=== PATIENT | male | born 1950 | race American Indian/Alaskan Native ===

== ENCOUNTER 2020-02-27 06:14 | Observation (INO) | payer MEDICARE ==
[2020-02-27] MEDS ORDERED: CLOPIDOGREL 75 MG TAB PO SCH (06:56)
[2020-02-27 07:39] LABS: INR 1.02 (0.87-1.13)
[2020-02-27 07:41] LABS: BUN/Creatinine Ratio 18; Blood Urea Nitrogen 22 mg/dL (9-20); Calcium 9.4 mg/dL (8.4-10.2); Hemolysis Index 3
[2020-02-27] MEDS: SODIUM CHLORIDE 0.9% 500 ML 500 ML IV SCH ×3 (07:43→08:55)
[2020-02-27 07:44] LABS: Eosinophils # (Auto) 0.2 K/mm3 (0.0-0.4); Eosinophils % (Auto) 2.4 % (0.0-4.3); Hematocrit 42.3 % (35.5-45.6); Hemoglobin 14.1 gm/dl (11.8-15.2); Lymphocytes # (Auto) 1.9 K/mm3 (1.2-5.4); Lymphocytes % (Auto) 28.7 % (13.4-35.0); Mean Corpuscular HGB Conc 33 % (32-34); Mean Corpuscular Volume 101 fl (84-94); Monocytes # (Auto) 0.9 K/mm3 (0.0-0.8); Monocytes % (Auto) 13.7 % (0.0-7.3); Platelet Count 157 K/mm3 (140-440); Red Blood Count 4.19 M/mm3 (3.65-5.03); Red Cell Distribution Width 14.2 % (13.2-15.2)
[2020-02-27] MEDS ORDERED: ASPIRIN EC 325 MG TAB PO SCH (08:00)
[2020-02-27] MEDS: MIDAZOLAM 2 MG/2 ML INJ ONE ×3 (08:43→08:58)
[2020-02-27] MEDS: LIDOCAINE (2%) 20 MG/1 ML VIAL 20 ML MDV INFILTRATI ONE ×2 (08:44→08:56)
[2020-02-27] MEDS: fentaNYL 100 MCG/2 ML INJ ONE ×4 (08:44→09:28)
[2020-02-27] MEDS: HEPARIN 10,000 UNITS/10 ML VIAL ONE ×4 (08:44→09:31)
[2020-02-27] MEDS: VERAPAMIL 5 MG/2 ML INJ ONE ×2 (08:45→08:58)
[2020-02-27] MEDS: HEPARIN/NS 5000 UNIT/500ML 1,000 ML IR ONE ×2 (08:46→08:55)
[2020-02-27] MEDS: NITROGLYCERIN SYRINGE 3 ML ONE ×2 (08:46→08:55)
[2020-02-27] MEDS ORDERED: NITROGLYCERIN SYRINGE 3 ML ONE ×2 (09:50→10:24)
[2020-02-27] MEDS ORDERED: HEPARIN/NS 5000 UNIT/500ML 500 ML IR ONE (09:57)
[2020-02-27] MEDS ORDERED: HYDROmorphone 1 MG/1 ML INJ ONE ×2 (10:06→10:12)
[2020-02-27] MEDS ORDERED: MIDAZOLAM 2 MG/2 ML INJ ONE (10:12)
[2020-02-27] MEDS ORDERED: NITROGLYCERIN DRIP 50 MG/250 ML BOTTLE ONE (10:22)
[2020-02-27] MEDS ORDERED: TIROFIBAN/NS 12,500 MCG/250 ML BAG IV ONE (10:38)
[2020-02-27] MEDS: ALUM-MAG HYDROXIDE-SIMETHICONE 200-200-20MG/5ML ORAL LIQD 30 ML ONE ×2 (11:00→11:11)
[2020-02-27] MEDS ORDERED: TIROFIBAN/NS 12,500 MCG/250 ML BAG IV SCH (11:00)
[2020-02-27] MEDS: CLOPIDOGREL 75 MG TAB ONE ×2 (11:00→11:11)
[2020-02-27] MEDS ORDERED: ACETAMINOPHEN 325 MG TAB PO PRN (11:16)
[2020-02-27] MEDS ORDERED: HYDROcodone/ACETAMINOPHEN 5-325 MG TAB PO PRN (11:16)
[2020-02-27] MEDS ORDERED: SENNOSIDES 8.6 MG TAB PO PRN (11:16)
[2020-02-27] MEDS ORDERED: ONDANSETRON 4 MG/2 ML INJ IV PRN (11:16)
[2020-02-27] MEDS ORDERED: ZOLPIDEM 5 MG TAB PO PRN (11:16)
[2020-02-27] MEDS ORDERED: traMADol 50 MG TAB PO PRN (11:16)
--- NOTE | 2020-02-27 11:16 | Event Note ---
Date: 02/27/20 Patient presented for outpatient coronary intervention, with successful complex bifurcation PCI of the mid right coronary artery, and successful PCI of the distal vessel. He will be admitted for overnight observation, anticipated discharge tomorrow on guideline directed medical therapy.
[2020-02-27] MEDS ORDERED: SODIUM CHLORIDE 0.9% 1000 ML 1,000 ML IV SCH (11:30)
--- NOTE | 2020-02-27 11:40 | Cardiac Catherization Report ---
CORONARY ANGIOPLASTY REPORT REASON FOR PROCEDURE: The patient is a 70-year-old man with multivessel coronary artery disease. He recently underwent a cardiac catheterization at an outside hospital. He was referred to this hospital for outpatient coronary intervention to the right coronary artery. PROCEDURES: 1. Coronary angioplasty and stenting of the mid and distal segments of the right coronary artery. 2. Sedation time, start 0855, end 1041. I was present for the entire procedure and supervised the moderate sedation administered to the patient. The patient was prepped and draped in a sterile fashion after informed consent. The right radial cath site was prepped and draped after a negative Ancelmo's test. The right radial artery was then entered using the Seldinger technique followed by placement of a 6-Z[place]ian hydrophilic sheath. We initially performed a limited angiography of the left coronary system. This found a patent left main coronary artery, and 2 stents in the proximal and mid segments of the left anterior descending artery. The LAD stent contained xisp-po-ybolsjab degree of diffuse in-stent restenosis. Otherwise, the rest of the LAD and diagonal branches contained diffuse mild atherosclerosis. A large first obtuse marginal branch of the circumflex artery also contained a stent in its proximal segment. This obtuse marginal stent was also patent with mild in-stent restenosis. Following the large first obtuse marginal, the AV groove circumflex was chronically and completely occluded, and a very small caliber terminal obtuse marginal branch filled by collaterals from the right coronary system. We then switched for a #4 right Richard guiding catheter, and pre-intervention angiograms of the right coronary artery were taken. The right coronary artery was a large caliber dominant system. We found an 80% bifurcation stenosis of the mid vessel at the origin of a large right ventricular branch. Following that, there was another, long 75-80% stenosis of the distal AV groove vessel leading to the terminal posterolateral branch. We then planned angioplasty of these two de rosalia lesions of the mid and distal segments of the right coronary artery. We selected a Die Cleaner 50 guidewire, which was introduced, into the main vessel past the distal occlusion. Another Die Cleaner 50 guidewire was selectively introduced into the right ventricular branch, which originated from the focal mid lesion. We then used a 2.5 mm balloon catheter and predilated the distal stenosis. Serial, 2.25 to 2.5 mm drug-eluting stents were then deployed across the long lesional segment, following which there was an excellent angiographic result and maintenance of MAYI 3 flow. We then turned our attention to the mid bifurcation in-stent stenosis. A 4.0 x 12 mm drug-eluting stent was deployed across the lesion and across the origin of the large right ventricular branch. The stent was deployed to optimal pressures in the primary stenting maneuver. Following wire placement, there was an excellent angiographic result in the AV groove vessel, but there was acute closure of the right ventricular branch despite our protective guidewire. Initial attempts at re-crossing into the right ventricular branch through the stent struts were unsuccessful due to poor guide support. We then turned our attention to the right femoral site. This was prepped and draped and 6-Z[place]ian sheath inserted. Another right Richard catheter was then advanced to the right coronary ostium, provided more optimal guide support via the right femoral approach. We were then able to re-cross the right ventricular branch and performed angioplasty of the ostium of these vessels through the stent struts. Following repeated balloon inflations, there remained an occlusive lesion in the proximal vessel. Another 2.5 x 12 mm drug-eluting stent was then deployed into the proximal segment of the right ventricular branch beginning at its ostium. Following deployment of the proximal RV stents, there was an excellent angiographic result, no residual bifurcation lesion and MAYI 3 flow was demonstrated in the main vessel as well as the RV branch. The patient was chest pain free, stable hemodynamically. The catheters and the wires were removed, sheath removed. The right femoral artery site was sealed using an Angio-Seal device. The right radial artery site was sealed using a TR band. The patient was returned to the postprocedure unit in stable condition. There were no complications. CONCLUSION: 1. Successful angioplasty and stenting of the distal right coronary artery. 2. Successful angioplasty and stenting of the complex bifurcation stenosis of the mid right coronary artery. JOB# [id number] MINA/ELYSIA
[2020-02-27] MEDS ORDERED: HYDROcodone/ACETAMINOPHEN 5-325 MG TAB ONE (12:39)
[2020-02-27] MEDS ORDERED: ONDANSETRON 4 MG/2 ML INJ ONE (13:51)
[2020-02-27] MEDS ORDERED: PRAVASTATIN 80 MG TAB PO SCH (22:00)
[2020-02-28] MEDS ORDERED: NITROGLYCERIN 0.4 MG PATCH 24HR TD SCH (06:00)
[2020-02-28 08:19] VITALS: BP 144/86
--- NOTE | 2020-02-28 09:08 | XRay Report ---
CHEST 1 VIEW INDICATION / CLINICAL INFORMATION: post pci. COMPARISON: None available. FINDINGS: SUPPORT DEVICES: None. HEART / MEDIASTINUM: No significant abnormality. LUNGS / PLEURA: No significant pulmonary or pleural abnormality. Linear line along the left lateral p leural border is favored to represent a skinfold. Follow-up radiograph may be helpful for confirmatio n. ADDITIONAL FINDINGS: No significant additional findings. IMPRESSION: 1. Linear line along the left lateral pleural border is favored to represent a skinfold. Follow-up ra diograph may be helpful for confirmation. Signer Name: Alton Puentes MD Signed: 02/28/2020 9:04 AM Workstation Name: [id number]
[2020-02-28 09:12] LABS: Basophils % (Auto) 0.3 % (0.0-1.8); Eosinophils % (Auto) 0.3 % (0.0-4.3); Hematocrit 37.5 % (35.5-45.6); Hemoglobin 12.8 gm/dl (11.8-15.2); Lymphocytes # (Auto) 0.7 K/mm3 (1.2-5.4); Lymphocytes % (Auto) 12.4 % (13.4-35.0); Mean Corpuscular HGB Conc 34 % (32-34); Mean Corpuscular Volume 99 fl (84-94); Monocytes # (Auto) 0.7 K/mm3 (0.0-0.8); Platelet Count 152 K/mm3 (140-440); Red Blood Count 3.78 M/mm3 (3.65-5.03); Red Cell Distribution Width 13.9 % (13.2-15.2)
[2020-02-28 09:20] LABS: Creatine Kinase MB 10.7 ng/mL (0.0-4.0)
[2020-02-28 09:22] LABS: BUN/Creatinine Ratio 23; Blood Urea Nitrogen 21 mg/dL (9-20); Calcium 8.8 mg/dL (8.4-10.2); Hemolysis Index 14
[2020-02-28] MEDS ORDERED: POTASSIUM CHLORIDE ER 20 MEQ TAB PO NR (09:30)
[2020-02-28 09:38] LABS: Chol/HDL Ratio 3.86 %; HDL Cholesterol 30 mg/dL (40-59); LDL Cholesterol,Direct 74 mg/dL (50-130)
[2020-02-28] MEDS ORDERED: METOPROLOL SUCCINATE XL 25 MG TAB PO SCH (10:00)
[2020-02-28] MEDS ORDERED: NON-FORMULARY EACH (Simvastatin [Simvastatin] 40 MG) PO SCH (10:00)
[2020-02-28] MEDS ORDERED: ASPIRIN EC 325 MG TAB PO SCH (10:00)
[2020-02-28] MEDS ORDERED: CLOPIDOGREL 75 MG TAB PO SCH (10:00)
--- NOTE | 2020-02-28 10:27 | Event Note ---
Date: 02/28/20 Patient is comfortable, no further chest pain, hemodynamics are stable. The right groin cath site is well-healed. 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 I have advised that he does not go back to work for at least 7 to 10 days. We will discharge him on guideline directed medical therapy for his coronary artery disease, including dual oral antiplatelet therapy with Plavix. Prior to his presentation, he was also on Eliquis for triple therapy, presumably for paroxysmal atrial fibrillation, this will be continued until he sees his primary quality control chemist.
--- NOTE | 2020-02-28 10:33 | Discharge Summary ---
Short Stay Discharge Plan Activity: advance as tolerated Weight Bearing Status: Partial Weight Bearing Diet: low fat, low cholesterol, low salt Wound: keep clean and dry Special Instructions: smoking cessation, no heavy lifting (3 days) Follow up with: PRIMARY CARE, [Primary Care Provider] - 7 Days HONG BEDOLLA MD [Staff Physician] - 7 Days Prescriptions: Losartan [Cozaar] 50 mg PO QDAY #30 tablet ISOSORBIDE MONOnitrate [Imdur ER] 30 mg PO DAILY #30 tab.er.24h Metoprolol [Lopressor TAB] 50 mg PO BID #60 tablet
== END 2020-02-28 14:21 | disposition home or self-care (01) ==
LOC: CATHLABREC 06:14 → 4A 11:16
PROVIDERS: ADMIT Internal Medicine Cardiovascular Disease; ATTEND Internal Medicine Cardiovascular Disease
DX: I25.10 Atherosclerotic heart disease of native coronary artery without angina pectoris (principal); I48.0 Paroxysmal atrial fibrillation; I11.0 Hypertensive heart disease with heart failure; I50.9 Heart failure, unspecified; I73.9 Peripheral vascular disease, unspecified; K21.9 Gastro-esophageal reflux disease without esophagitis; E78.5 Hyperlipidemia, unspecified; N40.0 Benign prostatic hyperplasia without lower urinary tract symptoms; Z98.61 Coronary angioplasty status; Z79.02 Long term (current) use of antithrombotics/antiplatelets
CPT/HCPCS: 36415; 71045; 80048; 80061; 82550; 82553; 84484; 85025; 85610; 85730; 93005; 93458; 96361; 96374; A9270; C1725; C1760; C1769; C1874; C1887; C1894; C9600; G0378; J1170; J1644; J2250; J2405; J3010; J3246; J7030; J7040; 92928; 96365; 96366; 96367; Q9967